=== PATIENT | female | born 1980 | race Caucasian/White ===

== ENCOUNTER 2017-10-15 16:19 | Emergency (ER) | payer OTHER ==
[2017-10-15] MEDS ORDERED: Zofran 4 MG/2 ML VIAL IV ONE (16:52)
[2017-10-15] MEDS ORDERED: Sodium Chloride 0.9% 1000 ML 1,000 ML IV STA ×2 (16:52→17:56)
[2017-10-15] MEDS ORDERED: Sodium Chloride 0.9% 1000 ML 1,000 ML ONE ×2 (16:58→18:07)
[2017-10-15] MEDS ORDERED: Zofran 4 MG/2 ML VIAL ONE ×2 (16:58→17:03)
--- NOTE | 2017-10-15 17:01 | ERPHSYRPT ---
- History of Present Illness Time Seen by Provider: 10/15/17 16:38 Source: patient Exam Limitations: clinical condition Patient Subjective Stated Complaint: Pt states "About 4 am I started to get dizzy. Now anytime I move I get dizzy and extremely nauseous. The room just keeps spinning." Triage Nursing Assessment: Pt alert and oriented X 3, skin pwd. PT ambulates slowly, speech is clear. Pt came back to ed in wheelchair hoding an emisis bag. Pt had vomited in bag. Physician History: PATIENT COMPLAINS OF ACUTE ONSET OF DIZZINESS AT 4AM EXACERBATION UPON MOTION OF HEAD MOVEMENT, EMESIS X 8 AND WATERY DIARRHEA. DENIES HEADACHE, BLURRED VISION, ABDOMINAL PAIN, FEVER OR URINARY SYMPTOMS. Timing/Duration: today Severity: severe Character of Deficits: other (MARKED DIZZINESS UPON MOTION OF HEAD) Deficits: no difficulties Baseline/Normal Cognition: alert oriented x 3 Current Cognition: alert oriented x 3 Baseline Gait: walks w/o assistance Associated Symptoms: nausea, vomiting (DIARRHEA) Allergies/Adverse Reactions: No Known Drug Allergies Allergy (Unverified 10/15/17 16:30) Hx Tetanus, Diphtheria Vaccination/Date Given: No Hx Influenza Vaccination/Date Given: No Hx Pneumococcal Vaccination/Date Given: No Immunizations Up to Date: Yes - Review of Systems Constitutional: No Fever, No Chills Eyes: No Symptoms Ears, Nose, & Throat: No Symptoms Respiratory: No Cough, No Dyspnea Cardiac: No Chest Pain, No Edema, No Syncope Abdominal/Gastrointestinal: Nausea, Vomiting, Diarrhea, No Abdominal Pain Genitourinary Symptoms: No Dysuria Musculoskeletal: No Back Pain, No Neck Pain Skin: No Rash Neurological: Dizziness, No Focal Weakness, No Sensory Changes Psychological: No Symptoms Endocrine: No Symptoms All Other Systems: Reviewed and Negative - Past Medical History Pertinent Past Medical History: Yes Neurological History: No Pertinent History ENT History: No Pertinent History Cardiac History: Other Respiratory History: Asthma Endocrine Medical History: No Pertinent History Musculoskeletal History: No Pertinent History GI Medical History: No Pertinent History History: No Pertinent History Psycho-Social History: No Pertinent History Female Reproductive Disorders: No Pertinent History Other Medical History: leaky heart valve - Past Surgical History Past Surgical History: Yes Other Surgical History: X 1. tubal - Social History Smoking Status: Never smoker Exposure to second hand smoke: No Drug Use: none Patient Lives Alone: No - Female History Hx Last Menstrual Period: 09/27/2017 Hx Now: No - Nursing Vital Signs Nursing Vital Signs: Initial Vital Signs Temperature 97.8 F 10/15/17 16:24 Pulse Rate 66 10/15/17 16:24 Respiratory Rate 16 10/15/17 16:24 Blood Pressure 131/70 10/15/17 16:24 O2 Sat by Pulse Oximetry 98 10/15/17 16:24 Pain Scale Pain Intensity 0 - Charlo Coma Scale Best Eye Response (Nel): (4) open spontaneously Best Verbal Response (Charlo): (5) oriented Best Motor Response (Charlo): (6) obeys commands Nel Total: 15 - Physical Exam General Appearance: no apparent distress, alert Eye Exam: bilateral eye: PERRL, EOMI Ears, Nose, Throat Exam: normal ENT inspection, moist mucous membranes Neck Exam: normal inspection, non-tender, supple Respiratory: normal breath sounds, lungs clear, airway intact, No respiratory distress Cardiovascular: regular rate/rhythm, No edema Gastrointestinal: soft, normal bowel sounds, other, No tenderness, No distention Back Exam: normal inspection Extremity Exam: normal inspection, No pedal edema Peripheral Pulses: carotid (R): 2+, carotid (L): 2+, femoral (R): 2+, femoral (L ): 2+, dorsalis-pedis (R): 2+, dorsalis-pedis (L): 2+ 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, 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: normal hearing, normal speech, tongue midline Coordination/Gait: normal finger to nose, normal gait Motor/Sensory: no motor deficit DTR: bicep (R): 2+, bicep (L): 2+, tricep (R): 2+, tricep (L): 2+, knee (R): 2+ , knee (L): 2+, ankle (R): 2+, ankle (L): 2+ Skin Exam: normal color, warm, dry, No rash SpO2 Interpretation: normal SpO2: 98 Oxygen Delivery: Room Air Ordered Tests: Active Orders 24 hr Category Date Time Status BMP Stat Lab 10/15/17 17:05 Completed CBC W DIFF Stat Lab 10/15/17 17:05 Completed UA W/RFX UR CULTURE Stat Lab 10/15/17 17:56 Completed Medication Summary Discontinued Medications Generic Name Dose Route Start Last Admin Trade Name Joleen PRN Reason Stop Dose Admin Sodium Chloride 1,000 mls @ 999 mls/hr 10/15/17 16:52 10/15/17 18:11 Sodium Chloride 0.9% 1000 Ml IV 10/15/17 17:52 Infused .Q1H1M STA Infusion Sodium Chloride Confirm 10/15/17 16:58 Sodium Chloride 0.9% 1000 Ml Administered 10/15/17 16:59 Dose 1,000 mls @ ud .ROUTE .STK-MED ONE Sodium Chloride 1,000 mls @ 999 mls/hr 10/15/17 17:56 10/15/17 18:08 Sodium Chloride 0.9% 1000 Ml IV 10/15/17 18:56 999 mls/hr .Q1H1M STA Administration Sodium Chloride Confirm 10/15/17 18:07 Sodium Chloride 0.9% 1000 Ml Administered 10/15/17 18:08 Dose 1,000 mls @ ud .ROUTE .STK-MED ONE Meclizine HCl 25 mg 10/15/17 18:45 10/15/17 18:55 Antivert 25 Mg PO 10/15/17 18:46 25 mg STAT ONE Administration Meclizine HCl Confirm 10/15/17 18:50 Antivert 25 Mg Administered 10/15/17 18:51 Dose 25 mg .ROUTE .STK-MED ONE Ondansetron HCl 8 mg 10/15/17 16:52 10/15/17 17:02 Zofran 4 Mg/2 Ml Vial IV 10/15/17 16:53 8 mg STAT ONE Administration Ondansetron HCl Confirm 10/15/17 16:58 Zofran 4 Mg/2 Ml Vial Administered 10/15/17 16:59 Dose 4 mg .ROUTE .STK-MED ONE Ondansetron HCl Confirm 10/15/17 17:03 Zofran 4 Mg/2 Ml Vial Administered 10/15/17 17:04 Dose 4 mg .ROUTE .STK-MED ONE Lab/Rad Data: Laboratory Result Diagrams 10/15/17 17:05 10/15/17 17:05 Laboratory Results 10/15/17 10/15/17 10/15/17 Range/Units 17:56 17:05 17:05 WBC 8.1 (4.0-10.5) K/mm3 RBC 4.74 (4.1-5.4) M/mm3 Hgb 13.1 (12.0-16.0) gm/dl Hct 39.8 (35-47) % MCV 84.0 (78-100) fl MCH 27.6 (26-32) pg MCHC 32.9 (32-36) g/dl RDW 13.3 (11.5-14.0) % Plt Count 257 (150-450) K/mm3 MPV 10.5 H (6-9.5) fl Gran % 81.7 H (36.0-66.0) % Eos # (Auto) 0.01 (0-0.5) Absolute Lymphs (auto) 1.17 (1.0-4.6) Absolute Monos (auto) 0.29 (0.0-1.3) Lymphocytes % 14.5 L (24.0-44.0) % Monocytes % 3.6 (0.0-12.0) % Eosinophils % 0.1 (0.00-5.0) % Basophils % 0.1 (0.0-0.4) % Absolute Granulocytes 6.61 (1.4-6.9) Basophils # 0.01 (0-0.4) Sodium 141 (137-145) mmol/L Potassium 3.9 (3.5-5.1) mmol/L Chloride 109 H (98-107) mmol/L Carbon Dioxide 19 L (22-30) mmol/L Anion Gap 17.0 H (5-15) MEQ/L BUN 10 (7-17) mg/dL Creatinine 0.63 (0.52-1.04) mg/dL Estimated GFR > 60.0 ML/MIN Glucose 101 (74-106) mg/dL Calcium 9.4 (8.4-10.2) mg/dL Ur Collection Type VOID Urine Color LT.YELLOW (YELLOW) Urine Appearance CLEAR (CLEAR) Urine pH 8.0 (5-6) Ur Specific [place] 1.005 (1.005-1.025) Urine Protein NEGATIVE (Negative) Urine Ketones SMALL (NEGATIVE) Urine Blood NEGATIVE (0-5) Juan Jose/ul Urine Nitrite NEGATIVE (NEGATIVE) Urine Bilirubin NEGATIVE (NEGATIVE) Urine Urobilinogen NORMAL (0-1) mg/dL Ur Leukocyte Esterase NEGATIVE (NEGATIVE) Urine Culture Reflexed NO (NO) Urine Glucose NEGATIVE (NEGATIVE) mg/dL Specimen Received 10/15/17 1800 - Progress Progress: improved Progress Note: 10/15/17 17:01 IV NORMAL SALINE 1000ML/HR, X 2, ZOFRAN 8MG IV AND ANTIVERT 25MG ORALLY 10/15/17 19:42 Counseled pt/family regarding: lab results, diagnosis, need for follow-up, rad results - Departure Time of Disposition: 19:45 Departure Disposition: Home, Extended Care Facility Clinical Impression: ACUTE LABYRINTHITIS Condition: Stable Critical Care Time: No Referrals: GRAYSON PEREZ MD [Primary Care Provider] - Additional Instructions: DRINK PLENTY OF FLUIDS. ANTIVERT 25MG EVERY 8 HOURS NEEDED FOR DIZZINESS. ZOFRAN 4MG EVERY 6 HOURS FOR NAUSEA. BEGIN A CLEAR LIQUID DIET FOR 24 HOURS AND ADVANCE DIET TOLERATED, CONSULT YOUR PRIMARY CARE PROVIDER FOR FOLLOWUP IN 1 WEEK. Prescriptions: Meclizine HCl 25 mg [Antivert 25 mg] 25 mg PO Q8H PRN PRN #20 tablet PRN Reason: Dizziness Ondansetron ODT 4 MG [Zofran Odt 4 mg] 4 mg PO STAT PRN #8 tab.rapdis PRN Reason: Nausea
[2017-10-15 17:09] LABS: BASOPHIL % 0.1 % (0.0-0.4); Basophil (Absolute #) 0.01 (0-0.4); Eosinophil % 0.1 % (0.00-5.0); Eosinophil (Absolute #) 0.01 (0-0.5); Granulocyte Absolute (ANC) 6.61 (1.4-6.9); Granulocytes % 81.7 % (36.0-66.0); Hematocrit 39.8 % (35-47); Hemoglobin 13.1 gm/dl (12.0-16.0); Lymphocyte (Absolute #) 1.17 (1.0-4.6); Lymphocytes % 14.5 % (24.0-44.0); Mean Corpuscular Hemoglobin 27.6 pg (26-32); Mean Corpuscular Hgb Concent. 32.9 g/dl (32-36); Mean Platelet Volume 10.5 fl (6-9.5); Monocyte (Absolute #) 0.29 (0.0-1.3); Monocytes % 3.6 % (0.0-12.0); Platelet Count 257 K/mm3 (150-450); Red Blood Count 4.74 M/mm3 (4.1-5.4); Red Cell Distribution Width 13.3 % (11.5-14.0); White Blood Count 8.1 K/mm3 (4.0-10.5)
[2017-10-15 17:19] LABS: BLOOD UREA NITROGEN 10 mg/dL (7-17); CHLORIDE 109 mmol/L (98-107); Calcium 9.4 mg/dL (8.4-10.2); Carbon Dioxide 19 mmol/L (22-30); Creatinine 1 0.63 mg/dL (0.52-1.04); Glucose 101 mg/dL (74-106); Potassium 3.9 mmol/L (3.5-5.1); SODIUM 141 mmol/L (137-145)
[2017-10-15 17:59] LABS: Appearance CLEAR (CLEAR); Bilirubin NEGATIVE (NEGATIVE); Blood NEGATIVE Ery/ul (0-5); Glucose NEGATIVE (NEGATIVE); Ketones SMALL (NEGATIVE); Leukocyte Esterase NEGATIVE (NEGATIVE); Nitrite NEGATIVE (NEGATIVE); Protein,Urine Dip NEGATIVE (Negative); Specific Gravity 1.005 (1.005-1.025); Urobilinogen NORMAL mg/dL (0-1)
[2017-10-15] MEDS ORDERED: ANTIVERT 25 MG PO ONE (18:45)
[2017-10-15] MEDS ORDERED: ANTIVERT 25 MG ONE ×2 (18:50→19:55)
[2017-10-15] MEDS ORDERED: ZOFRAN ODT 4 MG PO ONE (19:49)
[2017-10-15] MEDS ORDERED: ANTIVERT 25 MG PO PRN (19:50)
[2017-10-15] MEDS ORDERED: ZOFRAN ODT 4 MG ONE (19:54)
[2017-10-15 20:18] VITALS: BP 114/62; PULSE 73; O2SAT 100
== END 2017-10-15 20:18 | disposition home or self-care (01) ==
LOC: ED 16:19
DX: H83.09 Labyrinthitis, unspecified ear (principal); R11.2 Nausea with vomiting, unspecified; R19.7 Diarrhea, unspecified
CPT/HCPCS: 36415; 80048; 81002; 85025; 96360; 96374; 99284; J2405; Q0162; A9270-GY